=== PATIENT | female | born 1950 | race Caucasian/White ===

== ENCOUNTER → 2017-03-09 | Outpatient (CLI) | payer MEDICARE, OTHER ==
--- NOTE | 2017-03-09 16:44 | Diagnostic Imaging Report ---
PA and lateral views of the chest Indication: Cough. Elevated ESR. Findings: The lungs are clear. The heart size is normal. There is no effusion or pneumothorax The mediastinum and marixa appear unremarkable. Impression: Unremarkable study. Dictated by: Dictated on workstation # [id number]
== END ==
LOC: RAD 15:51
PROVIDERS: ATTEND Family Medicine
DX: R05 Cough (principal)
CPT/HCPCS: 71020